=== PATIENT | female | born 2000 | race Caucasian/White ===

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

== ENCOUNTER 2020-09-15 08:18 | Emergency (ER) | payer SELFPAY ==
[~2020-09-15] VITALS: Ht 165.1 cm; Wt 86.6 kg
[2020-09-15 08:24] VITALS: BP 130/72
[2020-09-15] MEDS ORDERED: NACL 0.9% 1,000 ML IV ONE (08:50)
[2020-09-15] MEDS ORDERED: ONDANSETRON 4 MG/2 ML VIAL IVP ONE (08:50)
[2020-09-15] MEDS ORDERED: KETOROLAC 30 MG/ML VIAL IVP ONE (08:50)
[2020-09-15 09:08] LABS: HEMATOCRIT 42.1 % (36-48); MEAN CORPUSCULAR HEMOGLOBIN 29 pg (27-31); MEAN CORPUSCULAR HGB CONC 33 g/dL (33-37); PLATELET COUNT (AUTO) 320 K/uL (140-450); RED BLOOD CELL COUNT(AUTO) 4.78 MIL/uL (4.20-5.40); RED CELL DISTRIBUTION WIDTH 14.7 % (11.6-13.7); WHITE BLOOD COUNT (AUTO) 13.9 K/uL (4.5-11.0)
[2020-09-15 09:20] LABS: BASOPHILS % (MANUAL) 0 % (0-2); EOSINOPHILS % (MANUAL) 0 % (0-4); LYMPHOCYTES % (MANUAL) 11 % (20-46); MONOCYTES % (MANUAL) 2 % (5-12)
[2020-09-15 09:40] LABS: ALBUMIN 4.3 g/dL (3.4-5.0); CARBON DIOXIDE 18.5 mmol/L (21-32); CREATININE 0.8 mg/dL (0.6-1.3); POTASSIUM 3.5 mmol/L (3.5-5.1); TOTAL BILIRUBIN 0.4 mg/dL (0.0-1.0)
[2020-09-15] MEDS ORDERED: ONDA4TAB PO (10:07)
[2020-09-15] MEDS ORDERED: BEN10 PO (10:07)
[2020-09-15 10:11] VITALS: BP 116/75
[2020-09-15 10:32] LABS: BILIRUBIN,URINE NEGATIVE (NEGATIVE); BLOOD, URINE NEGATIVE (NEGATIVE); COLOR,URINE YELLOW (YELLOW); LEUKOCYTE ESTERASE ,URINE NEGATIVE (NEGATIVE); NITRITE, URINE NEGATIVE (NEGATIVE); PH,URINE 6.5 (5.0-9.0); UGLUCOSE NEGATIVE (NEGATIVE)
[2020-09-15 10:48] LABS: APPEARANCE,URINE SLIGHTLY HAZY (CLEAR)
[2020-09-15 10:57] LABS: BARBITURATE, URINE NEGATIVE ng/ml (NEG <=200); BENZODIAZEPINE, URINE NEGATIVE ng/mL (NEG <=200); CANNABINOID, URINE POSITIVE ng/mL (NEG <=50); COCAINE, URINE NEGATIVE ng/mL (NEG <=300); OPIATE, URINE POSITIVE ng/mL (NEG <=2000); PHENCYCLIDINE SCREEN,URINE NEGATIVE ng/mL (NEG <=25)
[2020-09-15 11:04] LABS: RBC,URINE NONE SEEN /HPF (0-5); WBC,URINE 0-5 /HPF (0-5)
[2020-09-15 11:05] LABS: URINE AMORPHOUS URATE 1+ /HPF (None Seen)
== END 2020-09-15 10:11 | disposition home or self-care (01) ==
LOC: MED 08:18
DX: R11.2 Nausea with vomiting, unspecified (principal); R19.7 Diarrhea, unspecified; F12.10 Cannabis abuse, uncomplicated; Z79.899 Other long term (current) drug therapy
CPT/HCPCS: 36415; 80053; 80305; 81001; 81025; 83690; 85025; 96374; 96375; 99284; J1885; J2405

== ENCOUNTER 2021-05-11 01:28 | Emergency (ER) | payer SELFPAY ==
[~2021-05-11] VITALS: Ht 157.5 cm; Wt 78.0 kg
[~2021-05-11 01:28] MED LIST: BEN10 PO; ONDA4TAB PO
[2021-05-11 01:30] VITALS: BP 114/73
--- NOTE | 2021-05-11 01:35 | NUR ---
PT TAKEN TO BED #4
--- NOTE | 2021-05-11 01:50 | NUR ---
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 PT STATES SHE HAS NO PRIOR MEDICAL HX, NKA AND NO MEDICATIONS.
--- NOTE | 2021-05-11 02:20 | NUR ---
EK DONE AND TRANSCRIBED.
[2021-05-11 02:35] LABS: BASOPHILS % (AUTO) 0.3 % (0.0-2.0); EOSINOPHILS # (AUTO) 0.1 K/uL (0-0.4); EOSINOPHILS % (AUTO) 0.8 % (0.0-4.0); HEMATOCRIT 40.7 % (36-48); HEMOGLOBIN 13.6 g/dL (12.0-16.0); LYMPHOCYTES # (AUTO) 2.8 K/uL (2.5-16.5); LYMPHOCYTES % (AUTO) 24.7 % (20.5-51.1); MEAN CORPUSCULAR HEMOGLOBIN 30 pg (27-31); MEAN CORPUSCULAR HGB CONC 34 g/dL (33-37); MEAN CORPUSCULAR VOLUME 90.3 fL (80-94); MONOCYTES # (AUTO) 0.9 K/uL (0.8-1.0); MONOCYTES % (AUTO) 7.8 % (1.7-9.3); NEUTROPHILS # (AUTO) 7.4 K/uL (1.8-7.7); NEUTROPHILS % (AUTO) 66.4 % (42.2-75.2); PLATELET COUNT (AUTO) 219 K/uL (140-450); RED BLOOD CELL COUNT(AUTO) 4.51 MIL/uL (4.20-5.40); RED CELL DISTRIBUTION WIDTH 13.7 % (11.6-13.7); WHITE BLOOD COUNT (AUTO) 11.2 K/uL (4.5-11.0)
[2021-05-11 02:51] LABS: CARBON DIOXIDE 25.1 mmol/L (21-32); CREATININE 0.8 mg/dL (0.6-1.3); POTASSIUM 4.1 mmol/L (3.5-5.1); TOTAL BILIRUBIN 0.2 mg/dL (0.0-1.0)
[2021-05-11] MEDS ORDERED: KETOROLAC 15 MG/ML VIAL IVP ONE (03:00)
--- NOTE | 2021-05-11 03:06 | NUR ---
PER DR. SALMERON, TORADOL 15MG TO BE GIVEN IM INSTEAD OF IVP.
[2021-05-11] MEDS ORDERED: KETOROLAC 15 MG/ML VIAL IM ONE (03:10)
[2021-05-11] MEDS ORDERED: ACETAMINOPHEN EXTRA STRENGTH 500 MG TAB PO ONE (03:45)
[2021-05-11] MEDS ORDERED: IBUP-2213 PO (03:46)
[2021-05-11] MEDS ORDERED: LID5T TP (03:46)
[2021-05-11 03:50] VITALS: BP 114/73
--- NOTE | 2021-05-11 04:05 | NUR ---
The patient's care was reviewed and supervised by Marycarmen Gold RN.
[2021-05-11] MEDS ORDERED: LIDOCAINE 5% 1 EA PATCH TP SCH (09:00)
== END 2021-05-11 03:50 | disposition home or self-care (01) ==
LOC: MED 01:28
DX: R07.89 Other chest pain (principal); R00.2 Palpitations; F32.9 Major depressive disorder, single episode, unspecified; F41.9 Anxiety disorder, unspecified; Z79.899 Other long term (current) drug therapy
CPT/HCPCS: 36415; 71046; 80053; 81025; 84484; 85025; 93005; 96372; 99285; J1885

== ENCOUNTER 2021-06-07 06:23 | Emergency (ER) | payer SELFPAY ==
[~2021-06-07] VITALS: Ht 165.1 cm; Wt 77.1 kg
[~2021-06-07 06:23] MED LIST changes: +IBUP-2213 PO; +LID5T TP
[2021-06-07 06:30] VITALS: BP 113/76
--- NOTE | 2021-06-07 06:30 | NUR ---
TO BED AMBULATORY
[2021-06-07] MEDS ORDERED: ATA25 PO (07:23)
[2021-06-07 07:34] VITALS: BP 111/65
--- NOTE | 2021-06-07 07:36 | NUR ---
Patient discharged with v/s stable. Written and verbal after care instructions given and explained. Patient alert, oriented and verbalized understanding of instructions. Ambulatory with steady gait. All questions addressed prior to discharge. ID band removed. Patient advised to follow up with PMD. Rx of VISTARIL given. Patient educated on indication of medication including possible reaction and side effects. Opportunity to ask questions provided and answered.
== END 2021-06-07 07:36 | disposition home or self-care (01) ==
LOC: MED 06:23
DX: R00.2 Palpitations (principal); F41.9 Anxiety disorder, unspecified; R06.02 Shortness of breath; Z79.899 Other long term (current) drug therapy
CPT/HCPCS: 93005; 99283

== ENCOUNTER 2023-08-03 11:51 | Emergency (ER) | payer MEDICAID ==
[~2023-08-03] VITALS: Ht 165.1 cm; Wt 67.6 kg
[~2023-08-03 11:51] MED LIST changes: +ATA25 PO
[2023-08-03 11:55] VITALS: BP 137/88; PULSE 108; RESP 18; TEMP 97.9; O2SAT 98
[2023-08-03 12:01] VITALS: O2SAT 99
[2023-08-03 13:29] LABS: BASOPHILS # (AUTO) 0.1 K/uL (0.00-0.22); BASOPHILS % (AUTO) 0.7 % (0.0-2.0); EOSINOPHILS % (AUTO) 0.1 % (0.0-4.0); HEMATOCRIT 34.5 % (36-48); HEMOGLOBIN 11.9 g/dL (12.0-16.0); LYMPHOCYTES # (AUTO) 1.5 K/uL (2.5-16.5); LYMPHOCYTES % (AUTO) 13.4 % (20.5-51.1); MEAN CORPUSCULAR HEMOGLOBIN 31 pg (27-31); MEAN CORPUSCULAR HGB CONC 35 g/dL (33-37); MEAN CORPUSCULAR VOLUME 90.2 fL (80-94); MONOCYTES # (AUTO) 0.6 K/uL (0.8-1.0); MONOCYTES % (AUTO) 5.7 % (1.7-9.3); NEUTROPHILS # (AUTO) 9.1 K/uL (1.8-7.7); NEUTROPHILS % (AUTO) 80.1 % (42.2-75.2); PLATELET COUNT (AUTO) 322 K/uL (140-450); RED BLOOD CELL COUNT(AUTO) 3.83 MIL/uL (4.20-5.40); RED CELL DISTRIBUTION WIDTH 12.7 % (11.6-13.7); WHITE BLOOD COUNT (AUTO) 11.3 K/uL (4.8-10.8)
[2023-08-03 13:53] LABS: ANION GAP 15.1 (8-16); CALCIUM 8.8 mg/dL (8.5-10.1); CARBON DIOXIDE 24.9 mmol/L (21-32); CREATININE 0.5 mg/dL (0.6-1.3)
[2023-08-03 13:58] LABS: INR 0.92 (0.8-1.2); PARTIAL THROMBOPLASTIN TIME 27.5 secs (22-35.6); PROTHROMBIN TIME 9.7 secs (10.8-13.4)
[2023-08-03 14:00] LABS: ALANINE AMINOTRANSFERASE 20 U/L (12-78); ALBUMIN 2.5 g/dL (3.4-5.0); ALKALINE PHOSPHATASE 87 U/L (50-136); ASPARTATE AMINOTRANSFERASE 17 U/L (15-37); THYROID STIMULATING HORMONE 0.73 uIU/mL (0.34-3.74); TOTAL BILIRUBIN 0.2 mg/dL (0.0-1.0); TOTAL PROTEIN, SERUM 7.6 g/dL (6.4-8.2)
[2023-08-03 14:29] VITALS: BP 137/88; PULSE 98; RESP 18; TEMP 97.9; O2SAT 100
== END 2023-08-03 14:30 | disposition home or self-care (01) ==
LOC: MED 11:51
DX: O99.412 Diseases of the circulatory system complicating pregnancy, second trimester (principal); R00.2 Palpitations; O99.342 Other mental disorders complicating pregnancy, second trimester; F41.9 Anxiety disorder, unspecified; Z3A.25 25 weeks gestation of pregnancy; Z79.899 Other long term (current) drug therapy
CPT/HCPCS: 36415; 80048; 80076; 83880; 84443; 84484; 85025; 85379; 85610; 85730; 93005; 93970; 99284; Q0092

== ENCOUNTER 2023-11-12 16:14 | Observation (INO) | payer MEDICAID ==
[~2023-11-12] VITALS: Ht 165.1 cm; Wt 86.2 kg
[2023-11-12] MEDS ORDERED: PREN-543 PO (17:21)
[2023-11-12] MEDS: LACTATED RINGERS 1,000 ML IV SCH (17:35)
[2023-11-12 17:54] VITALS: BP 130/78; PULSE 113; RESP 18; TEMP 98.5
[2023-11-12] MEDS ORDERED: ONDANSETRON 4 MG/2 ML VIAL IVP PRN (17:55)
[2023-11-12 18:05] VITALS: BP 121/72; PULSE 96; RESP 18
[2023-11-12] MEDS: MORPHINE SULFATE 10 MG/ML VIAL IVP PRN (18:05)
[2023-11-12] MEDS: ONDANSETRON 4 MG/2 ML VIAL ONE (18:11)
== END 2023-11-12 20:00 | disposition home or self-care (01) ==
LOC: MLD 16:14
PROVIDERS: ADMIT Obstetrics & Gynecology; ATTEND Obstetrics & Gynecology
DX: O26.893 Other specified pregnancy related conditions, third trimester (principal); R10.9 Unspecified abdominal pain; Z3A.41 41 weeks gestation of pregnancy
CPT/HCPCS: 96361; 96374; G0378; J2270; J2405; J7120